=== PATIENT | female | born 1955 | race Two or more races ===

== ENCOUNTER 2017-03-14 17:38 | Inpatient (IN) | payer MEDICAID, MEDICARE ==
[~2017-03-14] VITALS: Ht 154.9 cm; Wt 65.6 kg
[2017-03-14 18:58] LABS: Basophils # (auto) 0.1 uL; Basophils % (auto) 0.7 % (0.0-2.0); Eosinophils # (auto) 0 uL; Eosinophils % (auto) 0.3 % (0.0-7.0); Hematocrit 44.6 % (36.0-46.0); Hemoglobin 14.3 g/dL (12.2-16.2); Lymphocytes % (auto) 14.2 % (10.0-50.0); Mean Corpuscular Hemoglobin 27.3 pg (28.0-32.0); Mean Corpuscular Hgb Conc. 32.1 g/dL (32.0-36.0); Mean Corpuscular Volume 85.1 fL (80.0-100.0); Monocytes # (auto) 1.3 uL; Monocytes % (auto) 9.3 % (0.0-12.0); Neutrophils # (auto) 10.9 uL; Neutrophils % (auto) 75.5 % (37.0-80.0); Nucleated Red Blood Cells % 0.1 %; Platelet Count (auto) 341 10^3/uL (140-450); Red Blood Cells 5.24 10^6/uL (4.0-5.20); Red Cell Distribution Width 14.4 % (11.8-14.3); White Blood Cell 14.4 10^3/uL (4.4-10.8)
[2017-03-14 19:07] LABS: Urine Bacteria NONE SEEN /hpf (None Seen); Urine Blood Negative /uL (Negative); Urine Hyaline Cast FEW /lpf (0 - 2); Urine Specific Gravity 1.027 (1.001-1.035); Urine WBC <1 /hpf (0 - 5)
[2017-03-14 19:17] LABS: BUN/Creatinine Ratio 13.4; Calcium 9.4 mg/dL (8.5-10.1); Potassium 3.9 mmol/L (3.5-5.1)
[2017-03-14 19:19] LABS: Bilirubin, Total 0.3 mg/dL (0.2-1.0); Total Protein 8.7 g/dL (6.4-8.2)
[2017-03-14 19:23] LABS: INR 0.99 (0.9-1.15); Partial Thromboplastin Time 26.8 sec (22.64-33.71); Prothrombin Time 10.8 sec (9.37-12.3)
[2017-03-14] MEDS ORDERED: SODIUM CHLORIDE 0.9% 1,000 ML IV ONE (22:20)
[2017-03-14] MEDS ORDERED: metroNIDAZOLE 500MG/100ML 100 ML IV ONE (22:30)
[2017-03-14] MEDS ORDERED: ONDANSETRON HCL 4 MG/2 ML VIAL IV ONE (22:30)
[2017-03-14] MEDS ORDERED: cefTRIAXone 1GM/10ml IVPUSH 10 ML IV ONE (23:30)
[2017-03-14] MEDS ORDERED: metroNIDAZOLE 500 MG TAB PO ONE (23:30)
[2017-03-14 23:31] LABS: Lactic Acid w/Reflex 4.5 mmol/L (0.4-2.0)
[2017-03-15] VITALS (7 sets, daily range): BP systolic 120–150; BP diastolic 63–77
[2017-03-15] MEDS ORDERED: SODIUM CHLORIDE 0.9% 1,000 ML IV SCH (03:00)
[2017-03-15] MEDS ORDERED: ACETAMINOPHEN 500 MG TAB PO PRN (03:00)
[2017-03-15] MEDS ORDERED: ONDANSETRON HCL 4 MG/2 ML VIAL IV PRN (03:00)
[2017-03-15] MEDS ORDERED: HYDROcodone-ACET 5/325MG TAB PO PRN (03:00)
[2017-03-15] MEDS ORDERED: MORPHINE SULFATE 10 MG/ML INJ 1ML SDV IV PRN (03:00)
[2017-03-15 03:50] LABS: Basophils # (auto) 0 uL; Basophils % (auto) 0.4 % (0.0-2.0); Eosinophils # (auto) 0.1 uL; Eosinophils % (auto) 0.7 % (0.0-7.0); Hematocrit 39.4 % (36.0-46.0); Hemoglobin 12.8 g/dL (12.2-16.2); Lymphocytes # (auto) 1.9 uL; Lymphocytes % (auto) 16.3 % (10.0-50.0); Mean Corpuscular Hemoglobin 27.5 pg (28.0-32.0); Mean Corpuscular Hgb Conc. 32.4 g/dL (32.0-36.0); Mean Corpuscular Volume 84.9 fL (80.0-100.0); Monocytes # (auto) 1.2 uL; Monocytes % (auto) 10.4 % (0.0-12.0); Neutrophils # (auto) 8.5 uL; Neutrophils % (auto) 72.2 % (37.0-80.0); Platelet Count (auto) 299 10^3/uL (140-450); Red Blood Cells 4.64 10^6/uL (4.0-5.20); Red Cell Distribution Width 14.4 % (11.8-14.3); White Blood Cell 11.7 10^3/uL (4.4-10.8)
[2017-03-15 04:03] LABS: BUN/Creatinine Ratio 11.4; Calcium 8.1 mg/dL (8.5-10.1); Potassium 3.6 mmol/L (3.5-5.1)
[2017-03-15 04:06] LABS: Lactic Acid w/Reflex 2.7 mmol/L (0.4-2.0)
[2017-03-15] MEDS: metroNIDAZOLE 500MG/100ML 100 ML IV SCH ×4 (05:32→23:33)
[2017-03-15] MEDS ORDERED: PRAV20TA3 PO (05:50)
[2017-03-15] MEDS ORDERED: AML5T PO (05:50)
[2017-03-15] MEDS ORDERED: MAGN400C2 PO (05:50)
[2017-03-15] MEDS ORDERED: GABA400C PO (05:50)
[2017-03-15] MEDS ORDERED: METF-370 PO (05:50)
[2017-03-15] MEDS ORDERED: ENAL2.5T PO (05:50)
[2017-03-15] MEDS: cefTRIAXone 1GM/10ml IVPUSH 10 ML IV SCH (08:28)
[2017-03-15] MEDS: SODIUM CHLORIDE 0.9% 1,000 ML IV SCH ×2 (10:40→23:35)
[2017-03-15] MEDS ORDERED: DEXTROSE (50%) 50ML SYRG IV PRN (13:45)
[2017-03-15] MEDS ORDERED: GOLYTELY 4L KIT PO ONE (14:00)
[2017-03-15] MEDS: ACCU-CHEK COMFORT CURVE STRIP VI SCH (17:34)
[2017-03-15] MEDS: InsuLIN REG 1unit/0.01ml Soln (100units/ml) SC SCH (17:42)
[2017-03-15] MEDS: GABAPENTIN 400 MG CAP PO SCH (21:50)
[2017-03-15] MEDS: ENALAPRIL MALEATE 2.5 MG TAB PO SCH (21:51)
[2017-03-15] MEDS ORDERED: PRAVASTATIN SODIUM 20 MG TAB PO SCH (22:00)
[2017-03-16] MEDS: ACCU-CHEK COMFORT CURVE STRIP VI SCH ×3 (00:08→12:36)
[2017-03-16] MEDS: metroNIDAZOLE 500MG/100ML 100 ML IV SCH ×2 (05:30→12:35)
[2017-03-16] MEDS: InsuLIN REG 1unit/0.01ml Soln (100units/ml) SC SCH ×3 (05:31→12:36)
[2017-03-16 05:53] VITALS: BP 110/56
[2017-03-16] MEDS ORDERED: GOLYTELY 4L KIT PO ONE (06:00)
[2017-03-16 07:12] LABS: Basophils # (auto) 0.1 uL; Basophils % (auto) 0.7 % (0.0-2.0); Eosinophils # (auto) 0.2 uL; Eosinophils % (auto) 1.9 % (0.0-7.0); Hematocrit 35.5 % (36.0-46.0); Hemoglobin 11.5 g/dL (12.2-16.2); Lymphocytes % (auto) 22.8 % (10.0-50.0); Mean Corpuscular Hemoglobin 27.7 pg (28.0-32.0); Mean Corpuscular Hgb Conc. 32.3 g/dL (32.0-36.0); Mean Corpuscular Volume 85.7 fL (80.0-100.0); Monocytes # (auto) 0.8 uL; Monocytes % (auto) 8.9 % (0.0-12.0); Neutrophils # (auto) 5.8 uL; Neutrophils % (auto) 65.7 % (37.0-80.0); Nucleated Red Blood Cells % 0.1 %; Platelet Count (auto) 273 10^3/uL (140-450); Red Blood Cells 4.14 10^6/uL (4.0-5.20); Red Cell Distribution Width 14.3 % (11.8-14.3); White Blood Cell 8.8 10^3/uL (4.4-10.8)
[2017-03-16 07:36] LABS: Albumin 3.1 g/dL (3.4-5.0); BUN/Creatinine Ratio 8.6; Bilirubin, Total 0.4 mg/dL (0.2-1.0); Calcium 8.2 mg/dL (8.5-10.1); Potassium 4.1 mmol/L (3.5-5.1); Total Protein 6.6 g/dL (6.4-8.2)
[2017-03-16 08:00] VITALS: BP 121/60
[2017-03-16 08:15] VITALS: BP 121/60
[2017-03-16] MEDS ORDERED: SODIUM CHLORIDE LOCK 10 ML ONE (08:33)
[2017-03-16] MEDS ORDERED: diphenhdrAMINE HCL 50 MG/1 ML VL ONE (08:33)
[2017-03-16] MEDS: cefTRIAXone 1GM/10ml IVPUSH 10 ML IV SCH (09:35)
[2017-03-16] MEDS ORDERED: MAGNESIUM OXIDE 400 MG TAB PO SCH (10:00)
[2017-03-16] MEDS ORDERED: amLODIPine BESYLATE 5 MG TAB PO SCH (10:00)
[2017-03-16] MEDS: fentaNYL CITRATE 100 MCG/2 ML VL ONE ×2 (10:29→10:35)
[2017-03-16] MEDS: MIDAZOLAM HCL 5 MG/ML-1ML VIAL ONE ×2 (10:29→10:35)
[2017-03-16 11:56] VITALS: BP 129/57
[2017-03-16] MEDS: GABAPENTIN 400 MG CAP PO SCH (12:34)
[2017-03-16] MEDS: ENALAPRIL MALEATE 2.5 MG TAB PO SCH (12:35)
[2017-03-16] MEDS: SODIUM CHLORIDE 0.9% 1,000 ML IV SCH (12:36)
[2017-03-16 15:50] VITALS: BP 129/57
[2017-03-16 17:08] VITALS: BP 111/50
== END 2017-03-16 16:55 | disposition home or self-care (01) | DRG 720 ==
LOC: ER 17:44 → TELE 17:45 → TELE-WESTW 03-15 05:05
PROVIDERS: ADMIT Nurse Practitioner Family; ATTEND Internal Medicine
PROC: 0DBM8ZX Excision of Descending Colon, Via Natural or Artificial Opening Endoscopic, Diagnostic (ICD-10-PCS; principal; 2017-03-16 10:26)
DX: A41.9 Sepsis, unspecified organism (principal); K55.039 Acute (reversible) ischemia of large intestine, extent unspecified; K57.31 Diverticulosis of large intestine without perforation or abscess with bleeding; I11.9 Hypertensive heart disease without heart failure; E44.1 Mild protein-calorie malnutrition; K57.32 Diverticulitis of large intestine without perforation or abscess without bleeding; K76.0 Fatty (change of) liver, not elsewhere classified; E86.0 Dehydration; K80.20 Calculus of gallbladder without cholecystitis without obstruction; K58.9 Irritable bowel syndrome, unspecified; E11.9 Type 2 diabetes mellitus without complications; E66.9 Obesity, unspecified; E78.5 Hyperlipidemia, unspecified; K64.8 Other hemorrhoids; Z83.3 Family history of diabetes mellitus; Z68.27 Body mass index [BMI] 27.0-27.9, adult
CPT/HCPCS: 36415; 45380; 71046; 74176; 80048; 80053; 81001; 82270; 82962; 83605; 83690; 85025; 85610; 85730; 87040; 87045; 87493; 87899; 93005; 96374; 96375; J1815; J2250; J2405; J3490

== ENCOUNTER 2023-08-02 23:51 | Emergency (ER) | payer BC, MEDICAID ==
[~2023-08-02] VITALS: Ht 154.9 cm; Wt 56.7 kg
[~2023-08-02 23:51] MED LIST: AML5T PO; ENAL1TAB42 PO; GABA400C PO; MAGN400C2 PO; METF-370 PO; PRAV20TA3 PO
[2023-08-03 01:27] LABS: Basophils # (auto) 0 10 ^3/uL (0-0.2); Basophils % (auto) 0.2 % (0.0-2.0); Eosinophils # (auto) 0.1 10 ^3/uL (0-0.8); Hematocrit 41.6 % (36.0-46.0); Hemoglobin 13.7 g/dL (12.2-16.2); Lymphocytes # (auto) 2.2 10 ^3/uL (0.4-5.4); Lymphocytes % (auto) 21.9 % (10.0-50.0); Mean Corpuscular Hgb Conc. 32.8 g/dL (32.0-36.0); Mean Corpuscular Volume 88.2 fL (80.0-100.0); Monocytes # (auto) 0.6 10 ^3/uL (0-1.3); Monocytes % (auto) 6.3 % (0.0-12.0); Neutrophils % (auto) 70.6 % (37.0-80.0); Nucleated Red Blood Cells % 0.1 %; Red Blood Cells 4.72 10^6/uL (4.0-5.20); Red Cell Distribution Width 13.4 % (11.8-14.3)
[2023-08-03] MEDS: hydrALAZINE HCL 10 MG TAB PO ONE (01:33)
[2023-08-03 01:42] LABS: INR 0.97 (0.9-1.15); Partial Thromboplastin Time 27.5 SEC (24.5-34.5); Prothrombin Time 10.3 sec (9.3-11.8)
[2023-08-03 01:44] LABS: Alanine Aminotransferase 18 U/L (7-40); Albumin 4.5 g/dL (3.2-4.8); Alkaline Phosphatase 69 U/L (46-116); Anion Gap 13 (5-15); Aspartate Aminotransferase 15 U/L (13-40); Blood Urea Nitrogen 7 mg/dL (9-23); Calcium 9.9 mg/dL (8.7-10.4); Carbon Dioxide 25 mmol/L (20-30); Chloride 99 mmol/L (98-107); Glucose 165 mg/dL (74-106); Magnesium 1.2 mg/dL (1.6-2.6); Sodium 137 mmol/L (136-145)
[2023-08-03 01:45] LABS: Bilirubin, Total 0.4 mg/dL (0.2-1.0); Total Protein 7.2 g/dL (5.7-8.2)
[2023-08-03] MEDS: LORazepam 0.5 MG TAB PO ONE (03:37)
[2023-08-03 03:55] VITALS: BP 159/75; PULSE 69; RESP 18; TEMP 98.6; O2SAT 97
[2023-08-03] MEDS ORDERED: HYDR-4924 PO (05:01)
== END 2023-08-03 07:49 | disposition home or self-care (01) ==
LOC: ER 23:51
DX: I10 Essential (primary) hypertension (principal); F41.9 Anxiety disorder, unspecified; E11.9 Type 2 diabetes mellitus without complications; E78.5 Hyperlipidemia, unspecified; Z86.2 Personal history of diseases of the blood and blood-forming organs and certain disorders involving the immune mechanism
CPT/HCPCS: 36415; 71045; 80053; 82962; 83735; 83880; 84484; 85025; 85610; 85730; 93005

== ENCOUNTER 2024-07-20 10:26 | Emergency (ER) | payer OTHER, MEDICAID ==
[~2024-07-20] VITALS: Ht 154.9 cm; Wt 65.7 kg
[~2024-07-20 10:26] MED LIST changes: +HYDR-4924 PO
[2024-07-20 11:30] VITALS: PULSE 81; RESP 18; TEMP 97.8; O2SAT 98
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
[2024-07-20] MEDS: LIDOCAINE 1% HCL (LOCAL ANESTH.) INJ 20ML MDV ID ONE (14:33)
[2024-07-20] MEDS: NEOMYCIN-BACITRACIN-POLYM 15GM TOP OINT TOP ONE (15:03)
[2024-07-20 15:30] VITALS: BP 130/55; PULSE 86; RESP 16; O2SAT 95
== END 2024-07-20 15:33 | disposition home or self-care (01) ==
LOC: EDBD 10:26 → ER 10:26
DX: S61.411A Laceration without foreign body of right hand, initial encounter (principal); S50.312A Abrasion of left elbow, initial encounter; S80.212A Abrasion, left knee, initial encounter; E11.9 Type 2 diabetes mellitus without complications; I10 Essential (primary) hypertension; E78.5 Hyperlipidemia, unspecified; Z79.899 Other long term (current) drug therapy; W25.XXXA Contact with sharp glass, initial encounter; Y93.89 Activity, other specified; Y92.89 Other specified places as the place of occurrence of the external cause; Y99.8 Other external cause status
CPT/HCPCS: 12002; 99285; J2003

== ENCOUNTER 2024-07-23 09:26 | Emergency (ER) | payer OTHER, MEDICAID ==
[~2024-07-23] VITALS: Ht 154.9 cm; Wt 55.0 kg
[2024-07-23 10:04] VITALS: BP 154/83; PULSE 76; RESP 17; TEMP 98.1; O2SAT 97
--- NOTE | 2024-07-23 10:56 | ED.PDOC ---
History of Present Illness HPI Comments 68 y/o F, presents to the ED for CC of suture removal. Patient states, she has sutures placed to her right palm following a fall x3days ago. No other symptoms or modifying factors present at this time. Chief Complaint: Suture Removal Time Seen by MD: 10:50 Reviewed Notes: Nurses Notes, Medications, Allergies Allergies: Coded Allergies: NO KNOWN ALLERGIES (Unverified , 03/14/17) Home Meds Active Scripts Hydroxyzine HCl (Hydroxyzine Hydrochloride) 25 Mg Tab, 1-2 TAB PO TID PRN, #30 TAB Prov:GALEN HOLT MD 08/03/23 Reported Medications Enalapril Maleate (Enalapril Maleate) 2.5 Mg Tab, 20 MG PO BID for 30 Days, MG 03/15/17 Metformin Hydrochloride (Metformin Hcl) 500 Mg Tab, 1000 MG PO IBID for 30 Days, MG 03/15/17 Amlodipine Besylate (NORVASC TABLET) 5 Mg Tb, 1 TAB PO DAILY, #30 TAB 5 Refills 03/15/17 Magnesium Oxide (Magnesium Oxide) 400 Mg Cap, 1 CAP PO DAILY, #30 CAP 3 Refills 03/15/17 Gabapentin (Neurontin) 400 Mg Cap, 2 CAP PO BID, #90 CAP 1 Refill 03/15/17 Pravastatin Sodium (PRAVACHOL TABLET) 20 Mg Tb, 1 TAB PO DAILY, #30 TAB 5 Refills 03/15/17 Information Source: Patient Mode of Arrival: Ambulatory Severity: Moderate Timing: Days Duration: Since onset Prehospital treatment: None Past Medical History PAST MEDICAL HISTORY: DM, High Lipids, HTN Surgical History: Denies all surgeries TOP LIFT COMPRESSER History: Denies all TOP LIFT COMPRESSER Hx Family History Family History: No family hx of DM, No family hx of Heart jennifer Social History Smoker: Non-Smoker Alcohol: Denies ETOH Use Drugs: Denies Drug Use Lives In: Home All Other Systems: Reviewed and Negative ( PER HPI) Physical Exam General Appearance: No Apparent Distress, Normal HEENT: Normal ENT Inspection, Pharynx Normal Neck: Full Range of Motion, Non-Tender, Normal, Normal Inspection Respiratory: Chest Non-Tender, Lungs Clear, No Accessory Muscle Use, No Respiratory Distress, Normal Breath Sounds Cardiovascular: No Edema, No Murmur, No Gallop, Normal Peripheral Pulses, Regular Rate/Rhythm Breast Exam: Deferred Gastrointestinal: No Organomegaly, Non Tender, No Pulsatile Mass, Normal Bowel Sounds, Soft Genitalia: Deferred Pelvic: Deferred Rectal: Deferred Extremities: No calf tenderness, Normal capillary refill, Normal inspection, Normal range of motion, Non-tender, No pedal edema Musculoskeletal : Apperance: Normal Neurologic: Alert, textile screen printer II-XII nml as Tested, No Motor Deficits, Normal Affect, Normal Mood, No Sensory Deficits Cerebellar Function: Normal Reflexes: Normal Skin: Dry, Normal Color, Warm Lymphatic: No Adenopathy Was a procedure done? Was a procedure done?: No Differential Dx Considerations may include: SUTURE REMOVAL X-Ray, Labs, Meds, VS Vital Signs Date Time Temp Pulse Resp B/P (MAP) Pulse Ox O2 Delivery O2 Flow Rate FiO2 07/23/24 10:04 98.1 76 17 154/83 (106) 97 98.1 07/23/24 10:04 76 17 97 Room Air 07/23/24 09:44 98.1 76 17 154/83 (106) 97 98.1 Current Medications Medications (Trade) Dose Ordered Sig/Rickey Route Start Time Stop Time Status Last Admin Neomycin/ Polymyxin/ Bacitracin (Triple Antibiotic) 1 applic ONCE ONCE TOP 07/23/24 11:00 07/23/24 11:01 DC 07/23/24 11:05 X-Ray, Labs, Meds, VS Comment Patient arrives alert and oriented, ABC's intact, afebrile, vital signs stable, saturating well in room air Suture Removal Alcohol swab used to clean area thoroughly. Used sterile suture removal kit to remove sutures. Clean, dry, intact. No discharge seen. Education provided to keep area clean and dry. If gets soiled, use soap and water to clean. Watch out for signs and symptoms of infection including fever, chills, yellow or green discharge, increased pain, swelling etc. Additional MDM Review of External, Non-ED records: External records reviewed. Discussion with independent historian (EMS, family) history obtained from the patient/parents (if applicable) at bedside Chronic conditions affecting care: None Social determinants of health affecting care: None Consideration of admission (observation or admission): I considered escalation of care to admission for this patient, however given the reassuring workup, the patient is safe for outpatient management. Time of 1ST Reevaluation: 11:20 Reevaluation 1ST: Unchanged Patient Education/Counseling: Diagnosis, Treatment Family Education/Counseling: No Family Present Departure 1 Departure Time of Disposition: 11:01 Impression: Primary Impression: Visit for wound check Disposition: 01 HOME / SELF CARE / HOMELESS Condition: Stable Critical Care Note Critical Care Time?: No Stability Stability form required: No Heart Score Heart Score: Heart Score Response (Comments) Value History N/A 0 EKG N/A 0 Age N/A 0 Risk Factors N/A 0 Troponin N/A 0 Total 0 I personally scribed for AMY PIERSON NP ([email or web address]) on 07/23/24 at 10:56. Electronically submitted by Gayatri Tipton ([email or web address]). I personally scribed for AMY PIERSON NP ([email or web address]) on 07/23/24 at 10:59. Electronically submitted by Gayatri Tipton ([email or web address]). AMY PIERSON NP Jul 23, 2024 10:56
[2024-07-23] MEDS: NEOMYCIN-BACITRACIN-POLYM UNITDOSE PKG TOP OINT TOP ONE (11:05)
== END 2024-07-23 11:07 | disposition home or self-care (01) ==
LOC: ER 09:26
DX: S61.411D Laceration without foreign body of right hand, subsequent encounter (principal); E11.9 Type 2 diabetes mellitus without complications; I10 Essential (primary) hypertension; E78.5 Hyperlipidemia, unspecified; Z79.899 Other long term (current) drug therapy; Z48.00 Encounter for change or removal of nonsurgical wound dressing; W19.XXXD Unspecified fall, subsequent encounter

== ENCOUNTER 2024-07-30 09:21 | Emergency (ER) | payer OTHER, MEDICAID ==
[~2024-07-30] VITALS: Ht 154.9 cm; Wt 52.9 kg
--- NOTE | 2024-07-30 10:37 | ED.PDOC ---
History of Present Illness(SKN HPI Comments 68 y/o F, with a history of DM, HLD, HTN, presents for suture removal from left hand. Patient reports having suture placed at [facility] following a fall injury incident on 07/19/24 when she fell after losing balance onto a piece of glass. Denies any discharge or further associated symptoms. Chief Complaint: Suture Removal Time Seen by MD: 10:35 Primary Care Provider: NONE History of Present Illness: Nurses Notes, Medications, Allergies Allergies: Coded Allergies: NO KNOWN ALLERGIES (Unverified , 03/14/17) Home Meds Active Scripts Cephalexin Monohydrate (Cephalexin) 500 Mg Cap, 1 CAP PO QID for 5 Days, #20 CAP 0 Refills Prov:AMY PIERSON CHURCH OFFICIAL 07/30/24 Hydroxyzine HCl (Hydroxyzine Hydrochloride) 25 Mg Tab, 1-2 TAB PO TID PRN, #30 TAB Prov:GALEN HOLT MD 08/03/23 Reported Medications Enalapril Maleate (Enalapril Maleate) 2.5 Mg Tab, 20 MG PO BID for 30 Days, MG 03/15/17 Metformin Hydrochloride (Metformin Hcl) 500 Mg Tab, 1000 MG PO IBID for 30 Days, MG 03/15/17 Amlodipine Besylate (NORVASC TABLET) 5 Mg Tb, 1 TAB PO DAILY, #30 TAB 5 Refills 03/15/17 Magnesium Oxide (Magnesium Oxide) 400 Mg Cap, 1 CAP PO DAILY, #30 CAP 3 Refills 03/15/17 Gabapentin (Neurontin) 400 Mg Cap, 2 CAP PO BID, #90 CAP 1 Refill 03/15/17 Pravastatin Sodium (PRAVACHOL TABLET) 20 Mg Tb, 1 TAB PO DAILY, #30 TAB 5 Refills 03/15/17 Information Source: Patient Mode of Arrival: Ambulatory Severity: Moderate Timing: Hours Duration: Since onset Prehospital treatment: None Past Medical History PAST MEDICAL HISTORY: DM, High Lipids, HTN Surgical History: Denies all surgeries COMMUNITY SERVICES MANAGER History: Denies all COMMUNITY SERVICES MANAGER Hx Family History Family History: No family hx of DM, No family hx of Heart jennifer Social History Smoker: Non-Smoker Alcohol: Denies ETOH Use Drugs: Denies Drug Use Lives In: Home All Other Systems: Reviewed and Negative (As per HPI) Physical Exam General Appearance: No Apparent Distress, Normal HEENT: Normal ENT Inspection, Pharynx Normal, TMs Normal Neck: Full Range of Motion, Non-Tender, Normal, Normal Inspection Respiratory: Chest Non-Tender, Lungs Clear, No Accessory Muscle Use, No Respiratory Distress, Normal Breath Sounds Cardiovascular: No Edema, No JVD, No Murmur, No Gallop, Normal Peripheral Pulses, Regular Rate/Rhythm Breast Exam: Deferred Gastrointestinal: No Organomegaly, Non Tender, No Pulsatile Mass, Normal Bowel Sounds, Soft Genitalia: Deferred Pelvic: Deferred Rectal: Deferred Extremities: No calf tenderness, Normal capillary refill, Normal inspection, Normal range of motion, Non-tender, No pedal edema Musculoskeletal : Apperance: Normal Neurologic: Alert, ocean fishing guide II-XII nml as Tested, No Motor Deficits, Normal Affect, Normal Mood, No Sensory Deficits Cerebellar Function: Normal Reflexes: Normal Skin: Dry, Normal Color, Warm, Other (2cm laceration to hand, no surround erythem or discharge, slight TTP) Lymphatic: No Adenopathy Was a procedure done? Was a procedure done?: No Sedation Sedation?: No Other Procedure Procedure suture removal Indication running suture right hand Anesthetic nothing Prep suture removal kit Success patient tolerated procedure, would was slightly opened, Dermabond placed. Differential Diagnosis (INTG) Differential Diagnosis: N/A Differential Diagnosis: N/A Differential Diagnosis: N/A Abscess: N/A Differential Diagnosis: Other (suture removal) X-Ray, Labs, Meds, VS Vital Signs Date Time Temp Pulse Resp B/P (MAP) Pulse Ox O2 Delivery O2 Flow Rate FiO2 07/30/24 10:39 98.3 66 16 124/68 (86) 98 98.3 07/30/24 10:39 68 16 98 Room Air 07/30/24 09:25 98.3 66 18 150/90 (110) 98 98.3 X-Ray, Labs, Meds, VS Comment Patient arrives alert and oriented, ABC's intact, afebrile, vital signs stable, saturating well in room air Suture Removal Suture removal procedure: Alcohol swab used to clean area thoroughly. Used sterile suture removal kit to remove 1x continuous running suture. Wound after removal was slightly opened. Therefore Dermabond and Steristrips was applied. Education provided to keep area clean and dry and to return 48 hours for reevaluation. If gets soiled, use soap and water to clean. Watch out for signs and symptoms of infection including fever, chills, yellow or green discharge, increased pain, swelling etc. Additional MDM Review of External, Non-ED records: External records reviewed. Discussion with independent historian (EMS, family) history obtained from the patient/parents (if applicable) at bedside Chronic conditions affecting care: DM, HLD, HTN Social determinants of health affecting care: None Consideration of admission (observation or admission): I considered escalation of care to admission for this patient, however given the reassuring workup, the patient is safe for outpatient management. Time of 1ST Reevaluation: 11:05 Reevaluation 1ST: Unchanged Patient Education/Counseling: Diagnosis, Treatment, Need For Follow Up Family Education/Counseling: No Family Present Departure 1 Departure Time of Disposition: 10:37 Impression: Primary Impression: Visit for suture removal Disposition: HOME / SELF CARE / HOMELESS Condition: Stable Additional Instructions: Discharge Note: Continue on your medications. Do not drive when taking narcotics. Drink plenty of fluids. Follow up with your primary Dr. Take your prescriptions as ordered. If your condition becomes worse call and follow up with your primary Dr. for instructions or return to the ER if needed. Keep wound clean and dry. Thank you for visiting [facility]. e-Prescriptions Cephalexin Monohydrate (Cephalexin) 500 Mg Cap 1 CAP PO QID for 5 Days, #20 CAP 0 Refills Prov: AMY PIERSON NP 07/30/24 Discharged With: Self Critical Care Note Critical Care Time?: No Stability Stability form required: No Heart Score Heart Score: Heart Score Response (Comments) Value History N/A 0 EKG N/A 0 Age N/A 0 Risk Factors N/A 0 Troponin N/A 0 Total 0 I personally scribed for AMY PIERSON NP ([email or web address]) on 07/30/24 at 11:07. Electronically submitted by Philip Pino ([email or web address]). AMY PIERSON NP Jul 30, 2024 10:37
[2024-07-30 10:39] VITALS: BP 124/68; PULSE 68; RESP 16; TEMP 98.3; O2SAT 98
[2024-07-30] MEDS ORDERED: CEPH500C PO (10:48)
== END 2024-07-30 10:50 | disposition home or self-care (01) ==
LOC: ER 09:21
DX: S61.412D Laceration without foreign body of left hand, subsequent encounter (principal); E11.9 Type 2 diabetes mellitus without complications; I10 Essential (primary) hypertension; E78.5 Hyperlipidemia, unspecified; Z79.899 Other long term (current) drug therapy; X58.XXXD Exposure to other specified factors, subsequent encounter